=== PATIENT | male | born 1965 | race Caucasian/White ===

== ENCOUNTER → 2016-08-17 | Outpatient (CLI) | payer OTHER ==
[~2016-08-17] MED LIST: ASCO500C4 PO; ASPCH81X PO; BIMA0.03 OPB; CGN1 PO; CHOL20009 PO; CYAN10004 PO; DIVA250T PO; DIVA500T3 PO; FOLI1TAB7 PO; INSU1INJ15 SC; LEVO100T PO; LISI-791 PO; METFTAB PO; METH1TAB5 PO; MIRT15TA3 PO; NVLGI SC; OLAN1TAB15 PO; TAMS0.4C38 PO
[2016-08-17 13:36] LABS: ALT/SGPT 37 U/L (12-78); AST/SGOT 19 U/L (15-37); BLOOD UREA NITROGEN 15 mg/dl (7-18); BUN/CREATININE RATIO 15.3 (10-20); CALCIUM 8.3 mg/dl (8.5-10.1); CARBON DIOXIDE 28 mmol/L (21-32); CHLORIDE 103 mmol/L (98-107); CHOLESTEROL 136 mg/dl (0-200); GLUCOSE 96 mg/dl (70-99); POTASSIUM 3.8 mmol/L (3.5-5.1); SODIUM 140 mmol/L (136-145); TRIGLYCERIDES 103 mg/dl (0-150); VERY LOW DENSITY LIPOPROT CALC 21 mg/dl
[2016-08-17 13:40] LABS: CHOLESTEROL/HDL RATIO 2.9; HDL CHOLESTEROL 47 mg/dl; LDL CHOLESTEROL CALCULATED 68 mg/dl
[2016-08-17 13:48] LABS: ESTIMATED AVERAGE GLUCOSE 128 mg/dl; HA1C FLAG Normal (Normal)
[2016-08-17 18:29] LABS: RATIO 41.7 mcg/mg (0-30.0)
== END | disposition home or self-care (01) ==
LOC: C.LABMFLN 07:23
PROVIDERS: ATTEND Family Medicine
DX: E03.9 Hypothyroidism, unspecified (principal); E11.49 Type 2 diabetes mellitus with other diabetic neurological complication; E53.8 Deficiency of other specified B group vitamins; E55.9 Vitamin D deficiency, unspecified; D64.9 Anemia, unspecified; I10 Essential (primary) hypertension

== ENCOUNTER → 2017-02-04 | Outpatient (CLI) | payer OTHER ==
[2017-02-04 12:56] LABS: BASO % 0.4 %; BASO ABS # 0.03 K/uL (0-0.2); COMPLETE YES; EOS % 2.1 %; HEMATOCRIT 34.3 % (42-52); IG% 0.3 %; LYMPH % 30.1 %; LYMPH ABS # 2.02 K/uL (1.2-3.4); MEAN CORPUSCULAR HEMOGLOBIN 33.6 pg (25-34); MEAN CORPUSCULAR HGB CONC 32.7 g/dl (32-36); MEAN PLATELET VOLUME 9.8 fL (7.4-10.4); MONO % 8.8 %; NEUT % 58.3 %; PLATELET COUNT 253 K/uL (130-400); RED BLOOD COUNT 3.33 M/uL (4.7-6.1)
[2017-02-04 13:22] LABS: ESTIMATED AVERAGE GLUCOSE 134 mg/dl; HA1C FLAG Normal (Normal)
[2017-02-04 14:02] LABS: ALB/GLOB RATIO 0.9 (0.9-2); ALKALINE PHOSPHATASE 56 U/L (45-117); ALT/SGPT 36 U/L (12-78); AST/SGOT 16 U/L (15-37); BLOOD UREA NITROGEN 18 mg/dl (7-18); BUN/CREATININE RATIO 18.7 (10-20); CALCIUM 9.2 mg/dl (8.5-10.1); CARBON DIOXIDE 29 mmol/L (21-32); CHLORIDE 102 mmol/L (98-107); CHOLESTEROL 117 mg/dl (0-200); CHOLESTEROL/HDL RATIO 3.3; CREATININE 0.98 mg/dl (0.60-1.40); GLUCOSE 43 mg/dl (70-99); HDL CHOLESTEROL 36 mg/dl; LDL CHOLESTEROL CALCULATED 58 mg/dl; POTASSIUM 4.2 mmol/L (3.5-5.1); SODIUM 138 mmol/L (136-145); TRIGLYCERIDES 114 mg/dl (0-150); VERY LOW DENSITY LIPOPROT CALC 23 mg/dl
== END | disposition home or self-care (01) ==
LOC: C.LABMFLN 10:22
PROVIDERS: ATTEND Family Medicine
DX: I10 Essential (primary) hypertension (principal); F30.9 Manic episode, unspecified; D64.9 Anemia, unspecified; E53.8 Deficiency of other specified B group vitamins; E11.49 Type 2 diabetes mellitus with other diabetic neurological complication; E03.9 Hypothyroidism, unspecified; E55.9 Vitamin D deficiency, unspecified

== ENCOUNTER → 2017-07-25 | Outpatient (CLI) | payer OTHER ==
[~2017-07-25] MED LIST changes: +BENZ-89 PO; -CGN1 PO; -FOLI1TAB7 PO; +FOLI1TAB8 PO; +METH-1305 PO; -METH1TAB5 PO
[2017-07-25 18:19] LABS: BASO % 0.4 %; BASO ABS # 0.03 K/uL (0-0.2); EOS % 1.5 %; EOS ABS # 0.11 K/uL (0-0.5); HEMATOCRIT 35.3 % (42-52); HEMOGLOBIN 11.6 g/dL (14.0-18.0); IG# 0.02 K/uL (0.00-0.02); LYMPH % 30.3 %; LYMPH ABS # 2.25 K/uL (1.2-3.4); MEAN CELL VOLUME 102.3 fL (80-100); MEAN CORPUSCULAR HEMOGLOBIN 33.6 pg (25-34); MEAN CORPUSCULAR HGB CONC 32.9 g/dl (32-36); MEAN PLATELET VOLUME 10.3 fL (7.4-10.4); MONO % 9.7 %; MONO ABS # 0.72 K/uL (0.11-0.59); NEUT % 57.8 %; NEUT ABS # 4.29 K/uL (1.4-6.5); PLATELET COUNT 280 K/uL (130-400); RED CELL DISTRIBUTION WIDTH CV 15.1 % (11.5-14.5); RED CELL DISTRIBUTION WIDTH SD 55.8 fL (36.4-46.3); WHITE BLOOD COUNT 7.42 K/uL (4.8-10.8)
[2017-07-25 18:59] LABS: ALBUMIN 3.5 gm/dl (3.4-5.0); ALKALINE PHOSPHATASE 71 U/L (45-117); ALT/SGPT 35 U/L (12-78); AST/SGOT 16 U/L (15-37); BLOOD UREA NITROGEN 19 mg/dl (7-18); CALCIUM 9.2 mg/dl (8.5-10.1); CARBON DIOXIDE 29 mmol/L (21-32); CHOLESTEROL 105 mg/dl (0-200); CREATININE 0.91 mg/dl (0.60-1.40); GLUCOSE 55 mg/dl (70-99); LDL CHOLESTEROL CALCULATED 39 mg/dl; POTASSIUM 4.2 mmol/L (3.5-5.1); SODIUM 136 mmol/L (136-145)
[2017-07-25 19:08] LABS: TOTAL PROTEIN 7.3 gm/dl (6.4-8.2); TRANSFERRIN 233 mg/dl (200-360)
[2017-07-26 05:42] LABS: HEMOGLOBIN A1C 6.4 % (4.5-5.6)
== END | disposition home or self-care (01) ==
LOC: C.LABMFLN 10:58
PROVIDERS: ATTEND Family Medicine
DX: Z00.00 Encounter for general adult medical examination without abnormal findings (principal); I10 Essential (primary) hypertension; D64.9 Anemia, unspecified; E03.9 Hypothyroidism, unspecified; E53.8 Deficiency of other specified B group vitamins; E11.49 Type 2 diabetes mellitus with other diabetic neurological complication; E11.65 Type 2 diabetes mellitus with hyperglycemia; Z12.11 Encounter for screening for malignant neoplasm of colon; Z12.5 Encounter for screening for malignant neoplasm of prostate

== ENCOUNTER → 2018-01-24 | Outpatient (CLI) | payer OTHER ==
[2018-01-25 06:11] LABS: HEMOGLOBIN A1C 7.1 % (4.5-5.6)
== END | disposition home or self-care (01) ==
LOC: C.LABMFLN 16:01
PROVIDERS: ATTEND Nurse Practitioner Adult Health
DX: E11.49 Type 2 diabetes mellitus with other diabetic neurological complication (principal); Z79.4 Long term (current) use of insulin; R80.9 Proteinuria, unspecified; E11.65 Type 2 diabetes mellitus with hyperglycemia